=== PATIENT | female | born 1995 | race Caucasian/White ===

== ENCOUNTER 2021-05-04 18:44 | Outpatient (CLI) | payer OTHER ==
[~2021-05-04] VITALS: Ht 154.9 cm; Wt 84.5 kg
[2021-05-04 19:01] VITALS: BP 135/79
[2021-05-04] MEDS ORDERED: PREN1TAB18 PO (19:13)
[2021-05-04] MEDS ORDERED: ACET500P3 PO (19:13)
[2021-05-04] MEDS ORDERED: HOME MED LIST COMPLETE! XX SCH (19:15)
== END 2021-05-04 19:50 | disposition home or self-care (01) ==
LOC: M LDO 18:44
PROVIDERS: ATTEND Obstetrics & Gynecology
DX: O26.893 Other specified pregnancy related conditions, third trimester (principal); R25.2 Cramp and spasm; Z3A.31 31 weeks gestation of pregnancy
CPT/HCPCS: 59025; G0378; G0463

== ENCOUNTER 2021-05-11 15:43 | Outpatient (CLI) | payer OTHER ==
[~2021-05-11] VITALS: Ht 154.9 cm; Wt 85.0 kg
[~2021-05-11 15:43] MED LIST: ACET500P3 PO; PREN1TAB18 PO
[2021-05-11 15:59] VITALS: BP 131/75
[2021-05-11] MEDS ORDERED: HOME MED LIST COMPLETE! XX SCH (16:20)
[2021-05-11 16:51] LABS: HEMOGLOBIN 12.1 g/dl (12.0-15.5); MEAN CORPUSCULAR HEMOGLOBIN 30.6 pg (27.0-33.0); MEAN CORPUSCULAR HGB CONC 34.6 g/dl (32.0-36.5); MEAN CORPUSCULAR VOLUME 88.6 fl (80.0-96.0); PLATELET COUNT, AUTOMATED 305 10^3/uL (150-450); RED BLOOD COUNT 3.95 10^6/uL (4.00-5.40); WHITE BLOOD COUNT 8.4 10^3/uL (4.0-10.0)
[2021-05-11 17:19] LABS: ALBUMIN 2.7 GM/DL (3.2-5.2); ALT/SGPT 23 U/L (12-78); BILIRUBIN,TOTAL 0.3 MG/DL (0.2-1.0); BLOOD UREA NITROGEN 3 MG/DL (7-18); CALCIUM LEVEL 8.8 MG/DL (8.5-10.1); CARBON DIOXIDE LEVEL 23 MEQ/L (21-32); CHLORIDE LEVEL 108 MEQ/L (98-107); CREATININE FOR GFR 0.42 MG/DL (0.55-1.30); GLOMERULAR FILTRATION RATE > 60.0 (>60); GLUCOSE, FASTING 80 MG/DL (70-100); POTASSIUM SERUM 3.9 MEQ/L (3.5-5.1); SODIUM LEVEL 139 MEQ/L (136-145); TOTAL PROTEIN 5.8 GM/DL (6.4-8.2)
[2021-05-11 18:54] LABS: GC DNA AMPLIFICATION NEGATIVE (NEGATIVE)
== END 2021-05-11 18:09 | disposition home or self-care (01) ==
LOC: M LDO 15:43
PROVIDERS: ATTEND Obstetrics & Gynecology
DX: O26.893 Other specified pregnancy related conditions, third trimester (principal); Z3A.32 32 weeks gestation of pregnancy; R10.2 Pelvic and perineal pain
CPT/HCPCS: 36415; 59025; 76815; 80053; 81001; 85027; 87661; G0378; G0463

== ENCOUNTER 2021-05-15 19:08 | Outpatient (CLI) | payer OTHER ==
[~2021-05-15] VITALS: Ht 154.9 cm; Wt 85.4 kg
[2021-05-15 19:26] VITALS: BP 127/70
[2021-05-15 20:08] LABS: APPEARANCE, URINE CLEAR (CLEAR); BACTERIA, URINE AUTO NEGATIVE (NEGATIVE); BILIRUBIN, URINE AUTO NEGATIVE (NEGATIVE); BLOOD, URINE BLOOD NEGATIVE (NEGATIVE); COLOR, URINE YELLOW (YELLOW); GLUCOSE, URINE (UA) AUTO NEGATIVE (NEGATIVE); KETONE, URINE AUTO NEGATIVE (NEGATIVE); LEUKOCYTE ESTERASE, URINE AUTO NEGATIVE (NEGATIVE); MUCUS, URINE SMALL (NEGATIVE); NITRITE, URINE AUTO NEGATIVE (NEGATIVE); PROTEIN, URINE AUTO NEGATIVE (NEGATIVE); RBC, URINE AUTO 1 /HPF (0-3); SPECIFIC GRAVITY URINE AUTO 1.014 (1.002-1.035); SQUAMOUS EPITHELIAL CELL UR AU 1 /HPF (0-6); UROBILINOGEN, URINE AUTO 0.2 mg/dL (0.0-2.0); WBC, URINE AUTO 1 /HPF (0-3)
[2021-05-15] MEDS ORDERED: FLUCONAZOLE 50MG TABLET PO ONE (20:35)
== END 2021-05-15 20:46 | disposition home or self-care (01) ==
LOC: M LDO 19:08
PROVIDERS: ATTEND Advanced Practice Midwife
DX: O47.03 False labor before 37 completed weeks of gestation, third trimester (principal); Z3A.32 32 weeks gestation of pregnancy
CPT/HCPCS: 59025; 81001; G0378; G0463

== ENCOUNTER 2021-06-03 05:56 | Outpatient (CLI) | payer OTHER ==
[~2021-06-03] VITALS: Ht 154.9 cm; Wt 87.3 kg
[2021-06-03 06:16] VITALS: BP 140/74
[2021-06-03 06:28] VITALS: BP 129/70
== END 2021-06-03 08:15 | disposition home or self-care (01) ==
LOC: M LDO 05:56
PROVIDERS: ATTEND Obstetrics & Gynecology
DX: O47.03 False labor before 37 completed weeks of gestation, third trimester (principal); Z3A.35 35 weeks gestation of pregnancy
CPT/HCPCS: 59025; G0463

== ENCOUNTER 2021-06-19 12:57 | Inpatient (IN) | payer OTHER ==
[~2021-06-19] VITALS: Ht 154.9 cm; Wt 88.9 kg
[2021-06-19] VITALS (12 sets, daily range): BP systolic 130–152; BP diastolic 71–94
[~2021-06-19 12:57] MED LIST changes: +ESCI5SOL3 PO; +OMEP10CASR PO
[2021-06-19] MEDS ORDERED: HOME MED LIST COMPLETE! XX SCH (13:30)
[2021-06-19] MEDS ORDERED: PENICILLIN G POTASSIUM IV 5 MU in D5W MINI-BAG PLUS 100 ML IV STA (15:01)
[2021-06-19] MEDS ORDERED: OXYTOCIN DRIP 30 UNITS in IV 1 EA IV PRN ×4 (15:05)
[2021-06-19 16:16] LABS: HEMATOCRIT 34.5 % (36.0-47.0); HEMOGLOBIN 12.3 g/dl (12.0-15.5); MEAN CORPUSCULAR HEMOGLOBIN 31.7 pg (27.0-33.0); MEAN CORPUSCULAR HGB CONC 35.7 g/dl (32.0-36.5); MEAN CORPUSCULAR VOLUME 88.9 fl (80.0-96.0); PLATELET COUNT, AUTOMATED 289 10^3/uL (150-450); RED BLOOD COUNT 3.88 10^6/uL (4.00-5.40); WHITE BLOOD COUNT 9.4 10^3/uL (4.0-10.0)
[2021-06-19] MEDS: PENICILLIN G POTASSIUM IV 2.5 MU in IV 1 EA IV SCH (20:04)
[2021-06-19] MEDS: ESCITALOPRAM OXALATE 10 MG TAB (LEXAPRO) PO SCH (20:35)
[2021-06-19] MEDS ORDERED: miSOPROStol 25MCG 1/4 TABLET PO ONE (21:00)
[2021-06-20] VITALS (44 sets, daily range): BP systolic 96–165; BP diastolic 51–92
[2021-06-20] MEDS: PENICILLIN G POTASSIUM IV 2.5 MU in IV 1 EA IV SCH ×3 (00:18→08:21)
[2021-06-20] MEDS ORDERED: miSOPROStol 25MCG 1/4 TABLET PO ONE (00:35)
[2021-06-20] MEDS ORDERED: FENTANYL 2MCG/ML ROPIVACAINE 0.2% IN 0.9% NACL 100ML IVBAG As Ordered ONE (01:20)
[2021-06-20] MEDS ORDERED: ePHEDrine SULFATE 25 MG/5 ML(5MG/ML) SYRINGE IV PRN (01:35)
[2021-06-20] MEDS ORDERED: EPIDURAL COMMENT XX SCH (01:35)
[2021-06-20] MEDS ORDERED: REFRIGERATOR IV KEYS XX PRN (01:35)
[2021-06-20] MEDS ORDERED: NALOXONE INJ 0.4MG/1ML VIAL (J2310 PER 1MG) IV PRN (01:35)
[2021-06-20] MEDS ORDERED: EPIDURAL/PCA KEYS XX PRN (01:35)
[2021-06-20] MEDS ORDERED: LACTATED RINGER'S 1000 ML IV PRN (01:35)
[2021-06-20] MEDS: ONDANSETRON 4MG/2ML VIAL IV PRN ×2 (02:24→08:48)
[2021-06-20] MEDS: FENTANYL/ROPIVACAINE/NACL BAG 100 ML EPIDURAL SCH ×2 (02:25→09:19)
[2021-06-20] MEDS ORDERED: OXYTOCIN DRIP 30 UNITS in IV 1 EA IV SCH ×2 (02:50→14:20)
[2021-06-20] MEDS: diphenhydrAMINE 50MG/ML VIAL (J1200) IV PRN ×2 (03:07→07:26)
[2021-06-20] MEDS ORDERED: ESCITALOPRAM OXALATE 10 MG TAB (LEXAPRO) PO SCH (09:00)
[2021-06-20] MEDS ORDERED: LR 1,000 ML IV SCH (11:00)
[2021-06-20] MEDS ORDERED: LIDOCAINE 1% MDV 20ML VIAL SC ONE (13:50)
[2021-06-20] MEDS ORDERED: LIDOCAINE 1% MDV 20ML VIAL As Ordered ONE (13:53)
[2021-06-20 14:00] LABS: CORD GAS ABE V -7.4; CORD GAS HCO3 V 20.6 MEQ/L; CORD GAS O2 SAT V 66.7 %; CORD GAS PCO2 V 51.2 mmHg; CORD GAS PH V 7.223 UNITS; CORD GAS SBC V 17.9 MEQ/L; CORD GAS TCO2 V 22.2 MEQ/L
[2021-06-20 14:03] LABS: CORD GAS ABE A -8.7; CORD GAS HCO3 A 19.8 MEQ/L; CORD GAS O2 SAT A 51.6 %; CORD GAS PCO2 A 52.7 mmHg; CORD GAS PH A 7.192 UNITS; CORD GAS PO2 A 26.3 mmHg; CORD GAS SBC A 16.6 MEQ/L; CORD GAS TCO2 A 21.4 MEQ/L
[2021-06-20] MEDS ORDERED: MEASLES,MUMPS,RUBELLA VACCINE INJ (MMR-II) (90707) SC SCH (14:20)
[2021-06-20] MEDS ORDERED: MOM 30ML SUSPENSION UDC PO PRN (14:20)
[2021-06-20] MEDS ORDERED: IBUPROFEN 600MG TAB PO PRN (14:20)
[2021-06-20] MEDS ORDERED: PROMETHAZINE 25 MG TAB PO PRN (14:20)
[2021-06-20] MEDS ORDERED: RHOGAM 300 MCG (1500 IU) INJ (J2790) IM SCH (14:20)
[2021-06-20] MEDS ORDERED: DIBUCAINE 1% OINTMENT 30GM TOP PRN (14:20)
[2021-06-20] MEDS ORDERED: ACETAMINOPHEN TAB 650MG DOSE (2X325MG) PO PRN (14:20)
[2021-06-20] MEDS: IBUPROFEN 800 MG TAB PO PRN ×2 (14:45→23:31)
[2021-06-20] MEDS: ACETAMINOPHEN 500 MG TAB PO PRN ×2 (14:45→21:03)
[2021-06-20] MEDS ORDERED: cefoTEtan DISODIUM 2 GM in D5W MINI-BAG PLUS 50 ML IV ONE (15:00)
[2021-06-20] MEDS: DOCUSATE SODIUM 100MG CAPSULE PO SCH (21:01)
[2021-06-20] MEDS: ESCITALOPRAM OXALATE 10 MG TAB (LEXAPRO) PO SCH (21:03)
[2021-06-21] MEDS: ACETAMINOPHEN 500 MG TAB PO PRN ×2 (03:41→20:18)
[2021-06-21 06:00] VITALS: BP 134/96
[2021-06-21 08:20] VITALS: BP 134/96
[2021-06-21] MEDS: DOCUSATE SODIUM 100MG CAPSULE PO SCH ×2 (08:24→20:17)
[2021-06-21] MEDS: PRENATAL VITAMINS CHEWABLE TABLET PO SCH (08:25)
[2021-06-21] MEDS: MIRALAX *UNIT DOSE* 17GM PACKET PO SCH (08:25)
[2021-06-21] MEDS: IBUPROFEN 800 MG TAB PO PRN ×2 (08:27→18:38)
[2021-06-21] MEDS: ESCITALOPRAM OXALATE 10 MG TAB (LEXAPRO) PO SCH (20:18)
[2021-06-22] MEDS ORDERED: COLA100C5 PO (05:43)
[2021-06-22] MEDS ORDERED: IBUP-1022 PO (05:43)
[2021-06-22] MEDS ORDERED: ACET1TAB55 PO (05:43)
[2021-06-22] MEDS: IBUPROFEN 800 MG TAB PO PRN (05:55)
[2021-06-22 06:00] VITALS: BP 150/79
[2021-06-22] MEDS: DOCUSATE SODIUM 100MG CAPSULE PO SCH (09:39)
[2021-06-22] MEDS: MIRALAX *UNIT DOSE* 17GM PACKET PO SCH (09:39)
[2021-06-22] MEDS: PRENATAL VITAMINS CHEWABLE TABLET PO SCH (09:39)
[2021-06-22 10:00] VITALS: BP 142/81
== END 2021-06-22 14:20 | disposition home or self-care (01) | DRG 768 ==
LOC: M LDO 12:57 → M LDI 14:41 → M OBS 06-20 15:58
PROVIDERS: ADMIT Obstetrics & Gynecology; ATTEND Obstetrics & Gynecology
PROC: 3E033VJ Introduction of Other Hormone into Peripheral Vein, Percutaneous Approach (ICD-10-PCS; 2021-06-19)
PROC: 3E0DXGC Introduction of Other Therapeutic Substance into Mouth and Pharynx, External Approach (ICD-10-PCS; 2021-06-19)
PROC: 0DQR0ZZ Repair Anal Sphincter, Open Approach (ICD-10-PCS; principal; 2021-06-20)
PROC: 10D07Z6 Extraction of Products of Conception, Vacuum, Via Natural or Artificial Opening (ICD-10-PCS; 2021-06-20)
DX: O42.02 Full-term premature rupture of membranes, onset of labor within 24 hours of rupture (principal); Z37.0 Single live birth; O70.23 Third degree perineal laceration during delivery, IIIc; Z3A.37 37 weeks gestation of pregnancy; O99.824 Streptococcus B carrier state complicating childbirth; O75.81 Maternal exhaustion complicating labor and delivery; O76 Abnormality in fetal heart rate and rhythm complicating labor and delivery